=== PATIENT | male | born 1975 | race Caucasian/White ===

== ENCOUNTER 2016-10-23 09:52 | Emergency (ER) | payer OTHER, BC ==
[2016-10-23] MEDS ORDERED: NORMAL SALINE 1,000 ML IV ONE (10:12)
[2016-10-23] MEDS ORDERED: HYDROmorphone HCL 1 MG/ML DISP.SYRIN IV ONE (10:12)
[2016-10-23] MEDS ORDERED: ONDANSETRON HCL/PF 2 MG/ML VIAL IV ONE (10:12)
[2016-10-23] MEDS ORDERED: HYDROmorphone HCL 1 MG/ML DISP.SYRIN ONE (10:16)
[2016-10-23] MEDS ORDERED: ONDANSETRON HCL/PF 2 MG/ML VIAL ONE (10:16)
[2016-10-23] MEDS ORDERED: ACETAMINOPHEN 500 MG TABLET PO ONE (11:18)
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
[2016-10-23 12:42] LABS: Urine Bilirubin Negative (NEGATIVE); Urine Blood Negative /ul (NEGATIVE); Urine Ketone Negative (NEGATIVE); Urine Nitrite Negative (NEGATIVE); Urine Protein Negative (NEGATIVE); Urine Specific Gravity <=1.005 SP.GR. (1.005-1.030); Urine Urobilinogen Normal (NORMAL)
[2016-10-23 12:54] LABS: Urine Appearance Clear; Urine Bacteria None Seen; Urine Color Pale Yellow; Urine RBC None Seen /hpf (0-5); Urine WBC None Seen /hpf (0-5)
[2016-10-23 14:05] VITALS: BP 130/88
== END 2016-10-23 13:30 | disposition home or self-care (01) ==
LOC: ER 09:52
DX: S46.001A Unspecified injury of muscle(s) and tendon(s) of the rotator cuff of right shoulder, initial encounter (principal); M54.2 Cervicalgia; M54.5 Low back pain; M54.6 Pain in thoracic spine; S09.90XA Unspecified injury of head, initial encounter; W11.XXXA Fall on and from ladder, initial encounter; Z90.49 Acquired absence of other specified parts of digestive tract; Z96.649 Presence of unspecified artificial hip joint; K21.9 Gastro-esophageal reflux disease without esophagitis

== ENCOUNTER 2016-11-18 09:23 | Emergency (ER) | payer BC, OTHER ==
[2016-11-18 09:59] VITALS: BP 124/90
[2016-11-18] MEDS ORDERED: CYCLOBENZAPRINE HCL 10 MG TABLET PO ONE (10:26)
[2016-11-18] MEDS ORDERED: KETOROLAC TROMETHAMINE 60 MG/2 ML VIAL IM ONE ×2 (10:26→10:36)
--- OUTSIDE RECORDS SUMMARY | 2016-11-18 10:27 | XMS REPORT | Continuity of Care Document ---
:1975 Author Organization [facility] [place] [address] Care Team Providers Name Role Phone Radha Amaro Primary Care Provider [phone] Source Comments This disclosure is being made pursuant to the [employer] program and maynot contain all information available regarding this patient.[facility] Active Allergies and Adverse Reactions No Known Allergies Current Medications Be aware that medications may not be up to date as of this document. Alwaysverify current medications with the patient. Prescription Sig. Disp. Refills Start Date End Date Status clonazePAM (KLONOPIN) Take 1 mg by mouth Active 1 MG tablet 3 (three) times daily as needed. omeprazole (PRILOSEC) Take 1 capsule by Active 10 MG capsule mouth daily. PARoxetine (PAXIL) 40 Take 40 mg by Active MG tablet mouth daily. ibuprofen Take 800 mg by 0 08/28/2016 Active (ADVIL,MOTRIN) 800 MG mouth every 8 tablet (eight) hours. lidocaine-prilocaine Apply up to 2 60 g 5 09/06/2016 Active (EMLA) cream affected areas up to twice a day. HYDROcodone-acetaminop Take 1 tablet by 60 tablet 0 10/10/2016 Active hen (NORCO) 5-325 MG mouth 2 (two) per tablet times daily as needed. 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 Office Visit Pain Medicine Crispin Marti MD Sacroiliac pain (Primary Dx); Chronic bilateral low back pain, with sciatica presence unspecified; Chronic pain syndrome; Facet syndrome; retirement (current) use of opiate analgesic 10/04/2016 Clinical Support Radiology Crispin Marti MD Chronic bilateral low Alberta, Jessica A, back pain, with Tech sciatica presence unspecified; Pain of both hip joints; Sacroiliac pain 10/04/2016 Treatment Physical Therapy Crispin Marti MD Chronic low back Lio, Livier G, pain, 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 laterality, with sciatica presence unspecified (Primary Dx) 10/04/2016 Telephone Pain Medicine Ellen Viera, Other RN 09/06/2016 Office Visit Physical Therapy Crispin Marti MD Chronic bilateral low Vaca, Livier G, back pain with BIOMASS BOILER OPERATOR bilateral sciatica (Primary Dx); Chronic bilateral low back pain, with sciatica presence unspecified 09/06/2016 Clinical Support Radiology Crispin Marti MD Chronic bilateral low Shikha, Jayshree M, RT back pain, with sciatica presence unspecified; Sacroiliac pain 09/06/2016 Office Visit Pain Medicine Crispin Marti MD Pain of both hip joints (Primary Dx); Sacroiliac pain; Chronic bilateral low back pain, with sciatica presence unspecified; Pain in both thighs; Chronic pain syndrome 09/06/2016 Scanned Document Pain Medicine Provider, Not In System 09/06/2016 Telephone Pain Medicine Ellen Viera, Results RN Social History Tobacco Use Types Packs/Day Years Used Date Never Smoker Smokeless Tobacco: Former User Alcohol Use Drinks/Week oz/Week Comments No Last Filed Vital Signs Vital Sign Reading Time Taken Blood Pressure 120/76 10/10/2016 3:40 PM LICENSED FUNERAL DIRECTOR AND EMBALMER Pulse 80 10/10/2016 3:40 PM LICENSED FUNERAL DIRECTOR AND EMBALMER Temperature 35.9 C (96.6 F) 10/10/2016 3:40 PM LICENSED FUNERAL DIRECTOR AND EMBALMER Respiratory Rate - - Height 1.93 m (6' 4") 09/06/2016 9:53 AM LICENSED FUNERAL DIRECTOR AND EMBALMER Weight 113.399 kg (250 lb) 09/06/2016 9:53 AM LICENSED FUNERAL DIRECTOR AND EMBALMER Body Mass Index 30.44 09/06/2016 9:53 AM LICENSED FUNERAL DIRECTOR AND EMBALMER Oxygen Saturation - - Plan of Care Health Maintenance Due Date Last Done Comments Tetanus/Pertussis (1 - Tdap) 1993 Influenza Immunization (#1) 2016 Results from Last 3 Months PAIN MANAGEMENT PROFILE 1 WITH CONFIRMATION, URINE (10/10/2016 4:14 PM) Component Value Range Prescribed Drug 1 Hydrocodone Prescribed Drug 2 Clonazepam Prescribed Drug 3 Hydrocodone Prescribed Drug 4 Clonazepam Creatinine 50.6 > or=20.0 mg/dL pH 5.98 4.5-9.0 Oxidant NEGATIVE <200 mcg/mL Amphetamines NEGATIVE <500 ng/mL MEDMATCH AMPHETAMINES CONSISTENT Barbiturates NEGATIVE <300 ng/mL medMATCH Barbiturates CONSISTENT Benzodiazepines POSITIVE(A) <100 ng/mL Alphahydoxyalprazolam NEGATIVE <25 ng/mL MEDMATCH AOH ALPRAZOLAM CONSISTENT Alphahydroxymidazolam NEGATIVE <50 ng/mL MED[facility] AOH MIDAZOLAM CONSISTENT Alphahydroxytriazolam NEGATIVE <50 ng/mL medMATCH aOH triazolam CONSISTENT Aminoclonazepam 274(H) <25 ng/mL [facility]MATCH AMINOCLONAZEPAM CONSISTENT Hydroxyethylflurazepam NEGATIVE <50 ng/mL MEDMATCH OH, ET FLURAZEPAM CONSISTENT Lorazepam NEGATIVE <50 ng/mL medMATCH Lorazepam CONSISTENT Nordiazepam UR Qual NEGATIVE <50 ng/mL medMATCH Nordiazepam CONSISTENT Oxazepam UR Qual NEGATIVE <50 ng/mL medMATCH Oxazepam CONSISTENT Temazepam Qual UR NEGATIVE <50 ng/mL medMATCH Temazepam CONSISTENT Marijuana Metabolite NEGATIVE <20 ng/mL medMATCH Marijuana Metab CONSISTENT Cocaine Metabolite NEGATIVE <150 ng/mL medMATCH Cocaine Metab CONSISTENT Methadone NEGATIVE <100 ng/mL medMATCH Methadone CONSISTENT Opiates NEGATIVE <100 ng/mL medMATCH Opiates INCONSISTENT Oxycodone NEGATIVE <100 ng/mL medMATCH Oxycodone CONSISTENT Phencyclidine NEGATIVE <25 ng/mL medMATCH Phencyclidine CONSISTENT See Note SEE NOTEComment: medMATCH comments are: - present when drug test results may be the result of metabolism of one or more drugs or when results are inconsistent with prescribed medication(s) listed. - may be blank when drug results are consistent with prescribed medication(s) listed. Narrative Testing performed at: [facility], [address] [place] [address] [address], [place], [address], Cutter Operator Tile: DASHA PENG,PHD Specimen: [facility] MRI PELVIS WO CONTRAST (10/04/2016 5:27 PM) [place] [address] DIAGNOSTIC IMAGING Name: Sandoval Randolph Ordering Phys: Crispin Marti Age: 41Date of : 1974 Accession Number: [id number] Date of Service:10/04/2016 Gender: M EXAMINATION:MRI sacrum without contrast. Date:10/04/2016. COMPARISON:Radiographs 09/06/2016. Indication:Bilateral hip and sacroiliac joint pain within the mid low back and bilateral sacroiliac joint area for approximately 6 weeks.Bilateral hip replacements. TECHNIQUE:Coronal T1, STIR, sagittal T2 fat sat, T1, axial T2 fat sat sequences of the sacroiliac joints were obtained. FINDINGS:No significant inflammation is present within the sacrum or the iliac bone.There is mild sclerosis of the iliac side of the sacroiliac joint on the left, increased as compared to the right.Minimal sclerosis and spurring of the left sacroiliac joint is noted.There is no acute fracture.There is some magnetic susceptibility artifact and loss of fat suppression on the T2 fat suppressed sequences near the sacroiliac joints on the axial images.No significant osteoarthritis of the lumbar spine is noted. 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 2.No evidence of sacroiliitis. THIS IS AN ELECTRONICALLY VERIFIED REPORT 10/05/2016 9:24 AM: Cosme Ibarra M.D. [facility] Cosme Ibarra M.D. AT:at Procedure Note Kunal, External Ris In - SatOct 05, 2016 9:27 [place] [address] DIAGNOSTIC IMAGING Name: Sandoval Randolph Ordering Phys: Crispin Marti Age: 41 Date of : 1975 Accession Number: [id number] Date of Service:10/04/2016 Gender: M EXAMINATION: MRI sacrum without contrast. Date: 10/04/2016. COMPARISON: Radiographs 09/06/2016. Indication: Bilateral hip and sacroiliac joint pain within the mid low back and bilateral sacroiliac joint area for approximately 6 weeks. Bilateral hip replacements. TECHNIQUE: Coronal T1, STIR, sagittal T2 fat sat, T1, axial T2 fat sat sequences of the sacroiliac joints were obtained. FINDINGS: No significant inflammation is present within the sacrum or the iliac bone. There is mild sclerosis of the iliac side of the sacroiliac joint on the left, increased as compared to the right. Minimal sclerosis and spurring of the left sacroiliac joint is noted. There is no acute fracture. There is some magnetic susceptibility artifact and loss of fat suppression on the T2 fat suppressed sequences near the sacroiliac joints on the axial images. No significant osteoarthritis of the lumbar spine is noted. IMPRESSION: 1. Mild osteoarthritic changes of the left sacroiliac joint. 2. No evidence of sacroiliitis. THIS IS AN ELECTRONICALLY VERIFIED REPORT 10/05/2016 9:24 AM: Cosme Ibarra M.D. [facility] Cosme Ibarra M.D. AT:at MRI LUMBAR SPINE WO CONTRAST (10/04/2016 4:51 PM) Narrative MRI LUMBAR SPINE WO CONTRAST Clinical History: Low back pain Multiplanar sagittal and axial images were obtained to the lumbar spine without contrast ministration. Cord terminates at the L1 level.Vertebral body heights and disc spaces maintained.No canal tumor.No paraspinal process. Impression: Well-preserved vertebral body heights and disc spaces.No epidural compromise of the canal or exiting roots at any particular level.No findings of any pars defects L5 segment THIS IS AN ELECTRONICALLY SIGNED REPORT BY READING PHYSICIAN: Michael Block M.D.2016-10-05 08:12:07 Procedure Note Kunal, External Ris In - SatOct 05, 2016 8:12 AM LICENSED FUNERAL DIRECTOR AND EMBALMER MRI LUMBAR SPINE WO CONTRAST Clinical History: Low back pain Multiplanar sagittal and axial images were obtained to the lumbar spine without contrast ministration. Cord terminates at the L1 level. Vertebral body heights and disc spaces maintained. No canal tumor. No paraspinal process. Impression: Well-preserved vertebral body heights and disc spaces. No epidural compromise of the canal or exiting roots at any particular level. No findings of any pars defects L5 segment THIS IS AN ELECTRONICALLY SIGNED REPORT BY READING PHYSICIAN: Michael Block M.D. 2016-10-05 08:12:07 XR SACROILIAC JOINTS MIN 3 VIEWS (09/06/2016 11:19 AM) Narrative XR SACROILIAC JOINTS MIN 3 VIEWS Clinical History: BILATERAL SI PAIN, PAIN IN BOTH HIPS Sacroiliac joints without sclerosis or erosive findings.Lateral hip prosthesis. Impression: normal appearance of each sacroiliac joint.Bilateral hip prosthesis. THIS IS AN ELECTRONICALLY SIGNED REPORT BY READING PHYSICIAN: Michael Block M.D.2016-09-06 12:27:00 Procedure Note Kunal, External Ris In - Renée Sep 06, 2016 12:27 PM LICENSED FUNERAL DIRECTOR AND EMBALMER XR SACROILIAC JOINTS MIN 3 VIEWS Clinical History: BILATERAL SI PAIN, PAIN IN BOTH HIPS Sacroiliac joints without sclerosis or erosive findings. Lateral hip prosthesis. Impression: normal appearance of each sacroiliac joint. Bilateral hip prosthesis. THIS IS AN ELECTRONICALLY SIGNED REPORT BY READING PHYSICIAN: Michael Block M.D. 2016-09-06 12:27:00 XR LUMBOSACRAL SPINE COMPLETE W BENDING (09/06/2016 11:12 AM) Narrative XR LUMBOSACRAL SPINE COMPLETE W BENDING Clinical History: CHRONIC LOW BACK PAIN THAT GOES INTO BOTH HIPS 7 views of the lumbar spine were obtained to include flexion and extension.Vertebral body heights and disc spaces maintained. No pars defects involving any of the segments.No malalignment. Flexion extension views without added displacement. Impression: No compression type fracture.No relative malalignment.No instability with flexion and extension THIS IS AN ELECTRONICALLY SIGNED REPORT BY READING PHYSICIAN: Michael Block M.D.2016-09-06 12:25:47 Procedure Note Kunal, External Ris In - Renée Sep 06, 2016 12:26 PM LICENSED FUNERAL DIRECTOR AND EMBALMER XR LUMBOSACRAL SPINE COMPLETE W BENDING Clinical History: CHRONIC LOW BACK PAIN THAT GOES INTO BOTH HIPS 7 views of the lumbar spine were obtained to include flexion and extension. Vertebral body heights and disc spaces maintained. No pars defects involving any of the segments. No malalignment. Flexion extension views without added displacement. Impression: No compression type fracture. No relative malalignment. No instability with flexion and extension THIS IS AN ELECTRONICALLY SIGNED REPORT BY READING PHYSICIAN: Michael Block M.D. 2016-09-06 12:25:47
[2016-11-18] MEDS ORDERED: CYCLOBENZAPRINE HCL 10 MG TABLET ONE (10:36)
--- NOTE | 2016-11-18 10:45 | ERNOTE ---
Upper Extremity HPI - Narrative Date of Service: 11/18/16 - General Extremities Pain Location: shoulder: right Time Seen by Provider: 11/18/16 10:18 Source: patient Exam Limitations: no limitations - Immun/Allergies/Home Medications Immunizations: IMMUNIZATION HX Immunizations Up to Date Yes History of Influenza Vaccine No Hx Pneumococcal Vaccination No Allergies/Adverse Reactions: Allergies Allergy/AdvReac Type Severity Reaction Status Date / Time No Known Allergies Allergy Verified 11/18/16 09:59 Home Medications: HOME MEDICATIONS Omeprazole [Prilosec] 40 mg PO DAILY 08/29/12 [Last Taken 10/23/16] Paroxetine HCl [Paxil] 40 mg PO DAILY 08/29/12 [Last Taken 10/23/16] clonazePAM [Klonopin Generic] 1 mg PO BID PRN 08/29/12 [Last Taken 10/23/16] oxyCODONE HCL/ACETAMINOPHEN [Percocet 5 MG/325 MG] 1 tab PO Q6H #20 tablet 10/23 [Last Taken Unknown] Cyclobenzaprine HCl [Flexeril] 10 mg PO TID PRN #30 tab 11/18/16 [Last Taken Unknown] Meloxicam 7.5 mg PO DAILY #30 tablet 11/18/16 [Last Taken Unknown] - History of Present Illness Narrative: Pt. comes in with c/o R shoulder pain that started on the after falling off of a ladder at work. Pt. has multiple previous injuries of multiple musculoskelatal complaints. Pt. was taking percocet QID for pain with relief but denies having any of those pills at this time. Pt. states that he occasionally wears ordered sling but does not wear it all the time. Modifying Factors - (Improves): Reports: pain medication, rest Modifying Factors - (Worsens): Reports: movement - Patient's Past Medical History Patient History - Medical: GERD Patient History - Cardiac/Respiratory: No pertinent hx Patient History - Cancer: No Hx of Cancer Patient History - Surgical Procedures: Total Hip Replacement, Other Patient History - Other: None - Family History Mother Family History - Medical: No pertinent hx - Social History Living Situations: home Abuse History: No History of abuse Psych History: Hx of Anxiety, Hx of Depression Does anyone smoke in the home?: No Alcohol Use: none Drug Use: none - Immunizations Immunizations Up to Date: Yes Hx Pneumococcal Vaccination: No History of Influenza Vaccine: No Physical Exam - Physical Exam General Appearance: Present: wd/wn, alert, no apparent distress Eye Exam: Normal inspection: bilateral, PERRL: bilateral, EOMI: bilateral Ears, Nose, Throat: Present: normal ENT inspection, hearing grossly normal, normal pharynx Neck: Present: normal inspection, nontender. Absent: lymphadenopathy (R), lymphadenopathy (L) Respiratory: Present: no respiratory distress, normal breath sounds, no accessory muscle use, chest nontender, lungs clear Cardiovascular/Chest: Present: regular rate, rhythm, no murmur, normal peripheral pulses Gastrointestinal/Abdominal: Present: soft Back Exam: Present: normal inspection Extremity Exam: Present: no edema, decreased range of motion, other - frontal SCM muscle Neurological Exam: Present: alert, oriented, normal mood/affect, no motor/ sensory deficits Skin Exam: Present: normal color, warm/dry. Absent: pallor, skin rash ED Progress - Vital Signs Patient's Vital Signs:: I have reviewed the patient's vital signs. Vital Signs: Vital Signs 11/18/16 09:54 Temperature 36.1 C L Pulse Rate 101 H Respiratory 12 Rate Blood Pressure 124/90 O2 Sat by Pulse 98 Oximetry - Progress/Reassessment Chief Complaint: Shoulder Injury/Pain Departure Clinical Impression: Rotator cuff (capsule) sprain and strain Qualifiers: Encounter type: sequela Laterality: right Qualified Code(s): S46.011S - Strain of muscle(s) and tendon(s) of the rotator cuff of right shoulder, sequela - Departure Disposition: Home self-care Condition: Good Instructions: SHANTANU for Routine Care of Injuries, [id number] Additional Instructions: Please follow up with orthopedics as ordered and follow up with occupational health this week. Also wear sling at all times. Referrals: Radha Amaro APN [Primary Care Provider] - Prescriptions: Cyclobenzaprine HCl [Flexeril] 10 mg PO TID PRN #30 tab PRN Reason: MUSCLE SPASMS Meloxicam 7.5 mg PO DAILY #30 tablet
== END 2016-11-18 11:00 | disposition home or self-care (01) ==
LOC: ER 09:23
DX: S46.011A Strain of muscle(s) and tendon(s) of the rotator cuff of right shoulder, initial encounter (principal); W11.XXXA Fall on and from ladder, initial encounter; Y93.9 Activity, unspecified; Y92.9 Unspecified place or not applicable; Y99.0 Civilian activity done for income or pay